=== PATIENT | male | born 1985 | race Caucasian/White ===

== ENCOUNTER 2016-09-20 16:30 | Emergency (ER) | payer OTHER ==
[2016-09-20 16:34] VITALS: BP 114/58
[2016-09-20] MEDS ORDERED: oxyCODONE/Acetamin 5/325 MG* TAB PO ONE (17:51)
--- NOTE | 2016-09-20 18:06 | ED ---
Lower Extremity - HPI Summary HPI Summary: 31M presents with right knee and back today. He was moving furniture when he tripped and feel down 3 stairs and landed on his back and then the dresser when on his knee. He landed on the right side of his back and denies any midline tenderness. He has not ambulate afterwards. He took some ibuprofen prior to arrival. He denies any saddle anaesthesia or loss of bowel or bladder. - History of Current Complaint Chief Complaint: EDTraumaMultiple Stated Complaint: RT LEG /BACK INJURY Time Seen by Provider: 09/20/16 17:39 Pain Intensity: 8 - Allergies/Home Medications Allergies/Adverse Reactions: Allergies Allergy/AdvReac Type Severity Reaction Status Date / Time Bee Venom Allergy Airway Verified 09/20/16 16:31 Obstruction PMH/Surg Hx/FS Hx/Imm Hx Cardiovascular History: Denies: Hx Hypertension Respiratory History: Denies: Hx Asthma Infectious Disease History: No Infectious Disease History: Denies: Traveled Outside the [place] in Last 30 Days - Family History Known Family History: Positive: Hypertension - Social History Alcohol Use: None Substance Use Type: Reports: None Smoking Status (MU): Heavy Every Day Tobacco Smoker Review of Systems Negative: Fever Negative: Chest Pain Negative: Shortness Of Breath Positive: Myalgia - back, ankle All Other Systems Reviewed And Are Negative: Yes Physical Exam Triage Information Reviewed: Yes Vital Signs On Initial Exam: Initial Vitals Temp Pulse Resp BP Pulse Ox 98.5 F 95 16 114/58 99 09/20/16 16:33 09/20/16 16:33 09/20/16 16:33 09/20/16 16:33 09/20/16 16:33 Vital Signs Reviewed: Yes Appearance: Positive: Well-Appearing Skin: Positive: Warm, Dry Head/Face: Positive: Normal Head/Face Inspection Eyes: Positive: Normal, Conjunctiva Clear Respiratory/Lung Sounds: Positive: Clear to Auscultation, Breath Sounds Present Cardiovascular: Positive: Normal, RRR Musculoskeletal: Positive: Other - nontender mid back, tender to right side lower back, area of ecchmyosis noted to top of right knee above patella, mild edema with ballotment test, nontender patella - Rocco Coma Scale Coma Scale Total: 15 Diagnostics - Vital Signs Vital Signs Temp Pulse Resp BP Pulse Ox 09/20/16 16:33 98.5 F 95 16 114/58 99 - Laboratory Lab Statement: Any lab studies that have been ordered have been reviewed, and results considered in the medical decision making process. - Radiology knee Xray Interpretation: No Acute Changes Radiology Interpretation Completed By: Radiologist back Xray Interpretation: No Acute Changes Radiology Interpretation Completed By: Radiologist Lower Extremity Course/Dx - Course Course Of Treatment: 31M presents with knee pain and back pain s/p falling down some stairs and dresser landed on him. on exam has bruise located on his knee and mild edema of right knee. tender to right side of back, no midline tenderness. xray knee and back normal. discussed pain medication and patient says can not do ibuprofen due to rash. patient requesting narcoctic which discussed that do not feel comfortable with as no fracture and was able to ambulate out of bed okay. told to place ice on area and take tyenlol. - Diagnoses Differential Diagnosis/HQI/PQRI: Positive: Fracture (Closed), Sprain, Strain Provider Diagnoses: Contusion of right knee, Back pain Discharge - Discharge Plan Condition: Good Disposition: HOME Patient Education Materials: Knee Pain (ED) Referrals: [facility] [place] [facility]IAN REFERRAL [Outside] No Primary Care Phys,NOPCP [Primary Care Provider] - Additional Instructions: Take Tylenol every 6 hours as needed for pain Apply ice, rest, elevate Establish care with primary care physician to follow up with Return to ED if develop any new or worsening symptoms
--- NOTE | 2016-09-20 18:37 | RAD ---
HISTORY: Right knee trauma COMPARISONS: None VIEWS: 4, Frontal, lateral, axial, and oblique views of the right knee FINDINGS: BONE DENSITY: Normal. BONES: There is no displaced fracture. JOINTS: There is no arthropathy. There is no suprapatellar joint effusion or lipohemarthrosis. ALIGNMENT: There is no dislocation. SOFT TISSUES: Unremarkable. OTHER FINDINGS: None. IMPRESSION: NO ACUTE OSSEOUS INJURY. IF SYMPTOMS PERSIST, RECOMMEND REPEAT IMAGING.
--- NOTE | 2016-09-20 18:38 | RAD ---
HISTORY: Trauma, back pain COMPARISONS: None VIEWS: 6 , Frontal, lateral, coned-down lateral sacral, and bilateral oblique views of the lumbar spine. FINDINGS: There is a transitional last lumbar type vertebral body. ALIGNMENT: The alignment is normal. VERTEBRAL BODIES: The vertebral body heights are normal. The interpedicular distances are normal. There is partial position of the S1 vertebral body. JOINTS: The facet joints are normal. INTERVERTEBRAL DISCS: The intervertebral disc heights are normal. SOFT TISSUE: Unremarkable. OTHER: The pelvis is unremarkable. The lung bases are clear. IMPRESSION: UNREMARKABLE RADIOGRAPHS OF THE LUMBAR SPINE
== END 2016-09-20 18:57 | disposition home or self-care (01) ==
LOC: ED 16:30
DX: S80.01XA Contusion of right knee, initial encounter (principal); M54.9 Dorsalgia, unspecified; W10.9XXA Fall (on) (from) unspecified stairs and steps, initial encounter; Y93.9 Activity, unspecified; Y92.9 Unspecified place or not applicable; Y99.9 Unspecified external cause status
CPT/HCPCS: 72110; 99281; A9270-GY

== ENCOUNTER 2016-12-20 19:25 | Emergency (ER) | payer OTHER ==
[2016-12-20 19:30] VITALS: BP 118/61
[2016-12-20] MEDS ORDERED: Clindamycin CAP* 150 MG PO ONE (21:14)
[2016-12-20] MEDS ORDERED: oxyCODONE/Acetamin 5/325 MG* TAB PO ONE ×2 (21:14→21:22)
--- NOTE | 2016-12-20 21:24 | ED ---
Throat Pain/Nasal Congestion - HPI Summary HPI Summary: 31M presents with dental pain for a day. He states he gets frequent dental infections because has gingivitis. He just wants all his teeth removed. looked in mouth today and noticed abscess. in waiting room abscess popped and has been draining. Has been taking Tylenol for pain which is not working. He denies any swelling around his eyes, pain with eye movement, or fever. His abscess is in his upper teeth. He does have a dentist but is switching so he can have all teeth removed. - History of Current Complaint Chief Complaint: EDDentalPain Time Seen by Provider: 12/20/16 20:52 - Allergies/Home Medications Allergies/Adverse Reactions: Allergies Allergy/AdvReac Type Severity Reaction Status Date / Time Bee Venom Allergy Airway Verified 09/20/16 16:31 Obstruction Ibuprofen AdvReac Mild GI Upset Verified 12/20/16 19:31 Ketorolac Tromethamine AdvReac Mild GI Upset Verified 12/20/16 19:31 [From Toradol] PMH/Surg Hx/FS Hx/Imm Hx Endocrine/Hematology History: Denies: Hx Anticoagulant Therapy Cardiovascular History: Denies: Hx Hypertension Respiratory History: Denies: Hx Asthma Infectious Disease History: No Infectious Disease History: Denies: Traveled Outside the [place] in Last 30 Days - Family History Known Family History: Positive: Hypertension - Social History Alcohol Use: None Substance Use Type: Reports: None Smoking Status (MU): Heavy Every Day Tobacco Smoker Review of Systems Negative: Fever Positive: Dental Pain Negative: Chest Pain Negative: Shortness Of Breath All Other Systems Reviewed And Are Negative: Yes Physical Exam Triage Information Reviewed: Yes Vital Signs On Initial Exam: Initial Vitals Temp Pulse Resp BP Pulse Ox 98.2 F 91 16 118/61 97 12/20/16 19:29 12/20/16 19:29 12/20/16 19:29 12/20/16 19:29 12/20/16 19:29 Vital Signs Reviewed: Yes Appearance: Positive: Pain Distress Skin: Positive: Warm, Dry Head/Face: Positive: Normal Head/Face Inspection Eyes: Positive: Normal, EOMI, MARILYN, Conjunctiva Clear ENT: Positive: Normal ENT inspection, Pharynx normal, TMs normal Dental: Positive: Gross Decay/Caries @ - throughout, Abscess @ - draining at 10 , Other - extensive edema of gingivia consitent with gingivitis Respiratory/Lung Sounds: Positive: Clear to Auscultation, Breath Sounds Present Cardiovascular: Positive: Normal, RRR Diagnostics - Vital Signs Vital Signs Temp Pulse Resp BP Pulse Ox 12/20/16 19:29 98.2 F 91 16 118/61 97 - Laboratory Lab Statement: Any lab studies that have been ordered have been reviewed, and results considered in the medical decision making process. EENT Course/Dx - Course Course Of Treatment: 31M presents with dental pain for a day. He states he gets frequent dental infections because has gingivitis. He just wants all his teeth removed. looked in mouth today and noticed abscess. in waiting room abscess popped and has been draining. Has been taking Tylenol for pain which is not working. He denies any swelling around his eyes, pain with eye movement , or fever. on exam has extensive gingivitis present. draining abscess present on tooth 10. afebrile. will place on clindamycin. do to already draining did not I&D. told needs dental follow up. patient understands and agrees with plan. - Differential Diagnoses Differential Diagnoses: Dental Abscess, Dental Caries, Fracture, Gingivitis - Diagnoses Provider Diagnoses: Dental abscess, Gingivitis Discharge - Discharge Plan Condition: Good Disposition: HOME Prescriptions: Clindamycin CAP* [Cleocin 150 MG CAP*] 450 mg PO TID #87 cap oxyCODONE/Acetamin 5/325 MG* [Percocet 5/325 TAB*] 1 tab PO Q6H PRN #12 tab MDD 4 PRN Reason: Pain Patient Education Materials: Gingivitis (ED) Referrals: [facility] [place] PH[facility]IAN REFERRAL [Outside] Additional Instructions: Take antibiotics: 3 tablets three times a day for 10 days Take ibuprofen every 6 hours, use narcotic for break through pain every 6 hours Avoid hard, crunchy food until seen by dentist Return to ED if develop fever, shortness of breath, pain with eye movement or swelling around eye Establish care with primary care physician Images - Images Dental: 1 - abscess
== END 2016-12-20 21:43 | disposition home or self-care (01) ==
LOC: ED 19:25
DX: K04.7 Periapical abscess without sinus (principal); K05.10 Chronic gingivitis, plaque induced; F17.200 Nicotine dependence, unspecified, uncomplicated
CPT/HCPCS: 99282; A9270-GY

== ENCOUNTER 2017-02-19 15:05 | Emergency (ER) | payer OTHER ==
[2017-02-19 15:17] VITALS: BP 112/63
--- NOTE | 2017-02-19 16:02 | ED ---
Throat Pain/Nasal Congestion - HPI Summary HPI Summary: 32M presents with dental pain since last night. He is going to have dental surgery on Tuesday. He is going to have all his teeth removed. He denies any fever. He denies any difficulty swallowing, chest pain, or SOB. He is not on antibiotic currently. He has been taking tyenlol without relief. He has history of dental pain. - History of Current Complaint Chief Complaint: EDDentalPain Time Seen by Provider: 02/19/17 15:28 - Allergies/Home Medications Allergies/Adverse Reactions: Allergies Allergy/AdvReac Type Severity Reaction Status Date / Time Bee Venom Allergy Airway Verified 09/20/16 16:31 Obstruction Tramadol Allergy Hives Verified 02/19/17 15:17 Ibuprofen AdvReac Mild GI Upset Verified 12/20/16 19:31 Ketorolac Tromethamine AdvReac Mild GI Upset Verified 12/20/16 19:31 [From Toradol] PMH/Surg Hx/FS Hx/Imm Hx Endocrine/Hematology History: Denies: Hx Anticoagulant Therapy Cardiovascular History: Denies: Hx Hypertension Respiratory History: Denies: Hx Asthma Infectious Disease History: No Infectious Disease History: Denies: Traveled Outside the [place] in Last 30 Days - Family History Known Family History: Positive: Hypertension - Social History Alcohol Use: None Substance Use Type: Reports: None Smoking Status (MU): Heavy Every Day Tobacco Smoker Review of Systems Negative: Fever Positive: Dental Pain Negative: Chest Pain Negative: Shortness Of Breath All Other Systems Reviewed And Are Negative: Yes Physical Exam Triage Information Reviewed: Yes Vital Signs On Initial Exam: Initial Vitals Temp Pulse Resp BP Pulse Ox 99.7 F 107 16 112/63 99 02/19/17 15:14 02/19/17 15:14 02/19/17 15:14 02/19/17 15:14 02/19/17 15:14 Vital Signs Reviewed: Yes Appearance: Positive: Pain Distress Skin: Positive: Warm, Dry Head/Face: Positive: Normal Head/Face Inspection Eyes: Positive: Normal, EOMI, MARILYN, Conjunctiva Clear ENT: Positive: Normal ENT inspection, Pharynx normal, TMs normal Dental: Positive: Percussion Tenderness @ - 19, Gross Decay/Caries @ - throughout, Dental Fracture @ - throughout, Other - no submandibular tenderness. Negative: Abscess @, Bleeding Neck: Positive: Supple, Nontender, No Lymphadenopathy Respiratory/Lung Sounds: Positive: Clear to Auscultation, Breath Sounds Present Cardiovascular: Positive: Normal, RRR - Rocco Coma Scale Coma Scale Total: 15 Diagnostics - Vital Signs Vital Signs Temp Pulse Resp BP Pulse Ox 02/19/17 15:14 99.7 F 107 16 112/63 99 - Laboratory Lab Statement: Any lab studies that have been ordered have been reviewed, and results considered in the medical decision making process. EENT Course/Dx - Course Course Of Treatment: 32M presents with dental pain since last night. He is going to have dental surgery on Tuesday. He is going to have all his teeth removed. He denies any fever. He denies any difficulty swallowing, chest pain , or SOB. He is not on antibiotic currently. He has been taking tyenlol without relief. He has history of dental pain. on exam has poor dentition. tender 17. no abscess. will start script PCN. istop checked no pain medication since last time I saw patient. will write for short script. patient understands and agrees with plan. - Differential Diagnoses Differential Diagnoses: Dental Abscess, Dental Caries, Fractured Tooth - Diagnoses Provider Diagnoses: Pain, dental Discharge - Discharge Plan Condition: Good Disposition: HOME Patient Education Materials: Toothache (ED) Referrals: [facility] [place] [facility]IAN REFERRAL [Outside] Additional Instructions: Take antibiotics: 4 times a day for 7 days, first dose given in ED Use tyenlol every 6 hours and narcotic for break through pain at night Avoid hard, crunchy food until seen by dentist Return to ED if develop fever, shortness of breath, pain with eye movement or swelling around eye Establish care with primary care physician Images - Images Dental: 1 - pain
[2017-02-19] MEDS ORDERED: oxyCODONE/Acetamin 5/325 MG* TAB PO ONE (16:04)
[2017-02-19] MEDS ORDERED: Penicillin VK TAB* 250 MG PO ONE (16:04)
== END 2017-02-19 16:25 | disposition home or self-care (01) ==
LOC: ED 15:05
DX: K08.89 Other specified disorders of teeth and supporting structures (principal); F17.210 Nicotine dependence, cigarettes, uncomplicated
CPT/HCPCS: 99282; A9270-GY

== ENCOUNTER 2017-04-06 12:15 | Emergency (ER) | payer OTHER ==
[2017-04-06 12:38] VITALS: BP 100/71
--- NOTE | 2017-04-06 13:20 | UC ---
Lower Extremity/Ankle HPI - HPI Summary HPI Summary: Pt presents with . He complains of lower back pain located mainly on the right side with radiating numbness and pain down his right leg. He tells me that about 1.5 weeks ago he fell down a set of stairs and landed multiple times on his lower back. He had immediate pain and proceeded to the ED where a workup was completed and deemed negative for acute processes. He was prescribed pain medication and told to f/u with his PCP. 5 days later he returned to the ED do to continued right sided lower back pain and out of pain medication. He did not f/u with his PCP, apparently because they had no appointments in that time frame. This visit he was prescribed 2 more days of pain medication. Today, he tells me that the numbness, tingling, and pain down his right leg is more constant and more intense than previously. He is out of pain medication, but states that when he took it that it at least "allowed him to function and cope with the pain". He has an appointment for Wednesday 04/11 with his PCP. He denies bowel or bladder dysfunction, N/V/D/C, or other pain. - History of Current Complaint Chief Complaint: UCBackPain Stated Complaint: LEG PAIN Time Seen by Provider: 04/06/17 13:20 Hx Obtained From: Patient Onset/Duration: Gradual Onset Severity Initially: Severe Severity Currently: Severe Pain Intensity: 10 Pain Scale Used: 0-10 Numeric Aggravating Factor(s): Standing, Ambulation Alleviating Factor(s): Rest, Ice Able to Bear Weight: Yes - Allergies/Home Medications Allergies/Adverse Reactions: Allergies Allergy/AdvReac Type Severity Reaction Status Date / Time Bee Venom Allergy Airway Verified 04/02/17 10:07 Obstruction Tramadol Allergy Hives Verified 04/02/17 10:07 Ibuprofen AdvReac Mild GI Upset Verified 04/02/17 10:07 Ketorolac Tromethamine AdvReac Mild GI Upset Verified 04/02/17 10:07 [From Toradol] PMH/Surg Hx/FS Hx/Imm Hx Previously Healthy: Yes Other History Of: Negative For: Anticoagulant Therapy - Surgical History Surgical History: None - Family History Known Family History: Positive: Hypertension - Social History Alcohol Use: None Substance Use Type: Prescribed Smoking Status (MU): Heavy Every Day Tobacco Smoker Type: Cigarettes Household Exposure Type: Cigarettes Cessation Counseling: Counseled 3+Min - 10 Min Review of Systems Constitutional: Negative Skin: Negative Respiratory: Negative Cardiovascular: Negative Gastrointestinal: Negative Genitourinary: Negative Neurovascular: Decreased Sensation - Right leg Musculoskeletal: Decreased ROM - Right leg, Other: - Pain lower back Neurological: Weakness - Right leg, Numbness - Right leg Psychological: Negative All Other Systems Reviewed And Are Negative: Yes Physical Exam Triage Information Reviewed: Yes Completion Of Physical Exam Limited Due To: Other - Pain and pt inability or refusal due to pain Appearance: Well-Nourished, Pain Distress Vital Signs: Initial Vital Signs Temp 98.2 F 04/06/17 12:33 Pulse 100 04/06/17 12:33 Resp 19 04/06/17 12:33 BP 100/71 04/06/17 12:33 Pulse Ox 100 04/06/17 12:33 Vital Signs Reviewed: Yes Neck: Positive: Supple, Nontender, Other: - NTTP Respiratory: Positive: Chest non-tender, Lungs clear, Normal breath sounds, No respiratory distress, No accessory muscle use Cardiovascular: Positive: RRR, No Murmur, Pulses Normal, Brisk Capillary Refill Abdomen Description: Positive: Nontender, Soft. Negative: CVA Tenderness (R), CVA Tenderness (L), Distended, Guarding Bowel Sounds: Positive: Present Musculoskeletal: Positive: No Edema, Strength Limited @ - Right Leg 3/5 due to pain., ROM Limited @ - Right leg extension/flexion due to pain, Other: - 3/5 Dorsiflexion and plantar flexion on right side due to pain Neurological: Positive: Alert, Muscle Tone Normal, Other: - CN II XII grossly intact. Sensory: sharp and dull touch intact L2-S1. Reflexes: knee and ankle +2. Psychological: Positive: Age Appropriate Behavior Lower Extremity Course/Dx - Course Course Of Treatment: Pt has follow up with PCP 04/11. I provided him with the number for neurosurgery to schedule an appt early april - pending what his PCP says. [place] until 04/11. - Differential Dx/Diagnosis Differential Diagnosis/HQI/PQRI: Sprain, Strain Provider Diagnoses: Low back pain with radiculopathy Discharge - Discharge Plan Condition: Stable Disposition: HOME Prescriptions: Hydrocodone-Acetaminophen [[place] 5-325 mg] 1 tab PO Q6HR #16 tab MDD 4 Patient Education Materials: Low Back Strain (ED) Referrals: No Primary Care Phys,NOPCP [Primary Care Provider] - Veronique Meza MD [Medical Doctor] - Additional Instructions: 1) Keep follow up with PCP on Wednesday 04/11 2) Call neurosurgery to schedule an appointment for sometime early april pending an MRI 3) Rest and alternate ice/heat to your back If you develop a fever, SOB, chest pain, loss of bowel or bladder function, new or worsening symptoms - please call your PCP or go to the ED.
== END 2017-04-06 13:40 | disposition home or self-care (01) ==
LOC: UCEAST 12:15
DX: M54.5 Low back pain (principal); M54.10 Radiculopathy, site unspecified; Z72.0 Tobacco use
CPT/HCPCS: 99212; G0463

== ENCOUNTER 2017-04-18 20:02 | Emergency (ER) | payer OTHER ==
[2017-04-18 22:28] VITALS: BP 99/63
[2017-04-18] MEDS ORDERED: Dexamethasone TAB* 4 MG PO ONE (23:13)
[2017-04-18] MEDS ORDERED: Gabapentin CAP(*) 300 MG PO ONE (23:13)
[2017-04-18] MEDS ORDERED: Methocarbamol TAB* 500 MG PO ONE (23:14)
--- NOTE | 2017-04-18 23:17 | ED ---
Back Pain - HPI Summary HPI Summary: 32M presents with back pain for two weeks. He states had injury two week ago. He had a negative CT at that time. He is having sciatica like pain for past two weeks. it radiates down his right leg. He denies any loss of bowel or bladder. He denies any saddle anaesthesia. He did not have a primary and was working on getting one but they had to reschedule to the 1st. He has been using tyenlol without relief. He denies any new injury. He states the narcotic that was prescribed a few weeks ago helped. He denies any fever. - History of Current Complaint Chief Complaint: EDPrescriptionNeeded Stated Complaint: LOWER BACK PAIN Time Seen by Provider: 04/18/17 22:56 Pain Intensity: 9 - Allergies/Home Medications Allergies/Adverse Reactions: Allergies Allergy/AdvReac Type Severity Reaction Status Date / Time Bee Venom Allergy Airway Verified 04/02/17 10:07 Obstruction Tramadol Allergy Hives Verified 04/02/17 10:07 Ibuprofen AdvReac Mild GI Upset Verified 04/02/17 10:07 Ketorolac Tromethamine AdvReac Mild GI Upset Verified 04/02/17 10:07 [From Toradol] PMH/Surg Hx/FS Hx/Imm Hx Endocrine/Hematology History: Denies: Hx Anticoagulant Therapy Cardiovascular History: Denies: Hx Hypertension Respiratory History: Reports: Hx Asthma Infectious Disease History: No Infectious Disease History: Denies: History Other Infectious Disease, Traveled Outside the [place] in Last 30 Days - Family History Known Family History: Positive: Hypertension - Social History Alcohol Use: None Hx Substance Use: No Substance Use Type: Reports: Prescribed Hx Tobacco Use: Yes Smoking Status (MU): Heavy Every Day Tobacco Smoker Type: Cigarettes Review of Systems Negative: Fever Negative: Chest Pain Negative: Shortness Of Breath Positive: Myalgia - back pain down right leg All Other Systems Reviewed And Are Negative: Yes Physical Exam Triage Information Reviewed: Yes Vital Signs On Initial Exam: Initial Vitals Temp Pulse Resp BP Pulse Ox 99.0 F 96 16 122/66 100 04/18/17 20:11 04/18/17 20:11 04/18/17 20:11 04/18/17 20:11 04/18/17 20:11 Vital Signs Reviewed: Yes Appearance: Positive: Well-Appearing Skin: Positive: Warm, Cold Head/Face: Positive: Normal Head/Face Inspection Eyes: Positive: Normal Respiratory/Lung Sounds: Positive: Clear to Auscultation, Breath Sounds Present Cardiovascular: Positive: Normal, RRR Musculoskeletal: Positive: Strength/ROM Intact - back, Other - tenderness over right SI joint, pos SLR right, good pulses Neurological: Positive: Reflexes Intact - patella Diagnostics - Vital Signs Vital Signs Temp Pulse Resp BP Pulse Ox 04/18/17 22:27 98.7 F 75 16 99/63 99 04/18/17 20:11 99.0 F 96 16 122/66 100 - Laboratory Lab Statement: Any lab studies that have been ordered have been reviewed, and results considered in the medical decision making process. Back Pain Course/Dx - Course Course Of Treatment: 32M presents with back pain for two weeks. He states had injury two week ago. He had a negative CT at that time. He is having sciatica like pain for past two weeks. it radiates down his right leg. He denies any loss of bowel or bladder. He denies any saddle anaesthesia. He did not have a primary and was working on getting one but they had to reschedule to the 1st. He has been using tyenlol without relief. He denies any new injury. He states the narcotic that was prescribed a few weeks ago helped. He denies any fever. on exam pos SLR right, patella intact, no midline tenderness, tenderness over SI joint. istop [id number]. explained that can not write scripts for narcotic for this recurrent pain as needs to follow up with primary. offered to go gabapentin , robaxin and medrol for pain. patient said "the only thing that works for me is narcotic" patient refused medication at discharge. - Diagnoses Differential Diagnosis/HQI/PQRI: Positive: Herniated Disc, Strain, Sprain Provider Diagnoses: Sciatica of right side Discharge - Discharge Plan Condition: Good Disposition: HOME Prescriptions: Gabapentin CAP(*) [Neurontin 300 CAP(*)] 300 mg PO TID #15 cap Methocarbamol [Robaxin-750 MG TAB] 750 mg PO TID #15 tab Methylprednisolone [Medrol Dosepak 4 MG*] 4 mg PO .SEE PINEDA INSTRUCTION #1 packet Patient Education Materials: Back Pain (ED) Referrals: [facility] [place],PT [Medical Doctor] - [facility] [place] [facility] REFERRAL [Outside] Additional Instructions: Follow up with primary A referral was given for PT which will be off some benefit to you Follow directions on package for Medrol pack Take muscle relaxers three times a day Use Tylenol for pain every 6 hours ice/heat area, move as much as possible Return to ED if develop any new or worsening symptoms
== END 2017-04-18 23:37 | disposition home or self-care (01) ==
LOC: ED 20:02
DX: M54.31 Sciatica, right side (principal); F17.210 Nicotine dependence, cigarettes, uncomplicated
CPT/HCPCS: 99281

== ENCOUNTER 2017-04-19 12:39 | Emergency (ER) | payer OTHER ==
[2017-04-19 12:45] VITALS: BP 144/71
--- NOTE | 2017-04-19 13:58 | UC ---
Bobo Gould Benjamin, scribed for Loco Mcclain MD on 04/19/17 at 1344 . Back Pain HPI - HPI Summary HPI Summary: 32yo male c/o lower back pain that radiates down the anterior aspect of his right leg. Pt started having back pain since 2-3 weeks ago, after a mechanical fall. Pt also reports numbness, tingling, and weakness on his right leg that started around 4 days after his fall. Pt denies any bowel or urinary incontinence. Anal area is not numb. Pt was seen at ED for his fall, and CT r/o any fx. FHx of DDD, DM, breast CA, and COPD. Pt's PCP appointment is on the , and pt requests pain meds until then. - History of Current Complaint Chief Complaint: UCBackPain Stated Complaint: LOWER BACK AND RIGHT LEG PAIN Time Seen by Provider: 04/19/17 13:30 Hx Obtained From: Patient, Family/[employer]pler - partner Onset/Duration: Sudden Onset, Lasting Weeks - 2-3 weeks, Still Present, Worse Since - progressively worsensing Timing: Constant Severity Initially: Mild Severity Currently: Moderate Pain Scale Used: 0-10 Numeric Back Pain: Is Discrete @ - lower back, Radiates To - RLE Aggravating Factor(s): Movement Alleviating Factor(s): Rest Associated Signs And Symptoms: Positive: Weakness - RLE, Numbness - RLE, Tingling - RLE. Negative: Bladder Incontinence, Bowel Incontinence - Allergies/Home Medications Allergies/Adverse Reactions: Allergies Allergy/AdvReac Type Severity Reaction Status Date / Time Bee Venom Allergy Airway Verified 04/19/17 12:41 Obstruction Tramadol Allergy Hives Verified 04/19/17 12:41 Ibuprofen AdvReac Mild GI Upset Verified 04/19/17 12:41 Ketorolac Tromethamine AdvReac Mild GI Upset Verified 04/19/17 12:41 [From Toradol] Home Medications: Home Medications NK [No Home Medications Reported] 04/19/17 [History Confirmed 04/19/17] PMH/Surg Hx/FS Hx/Imm Hx Previously Healthy: Yes Other History Of: Negative For: Anticoagulant Therapy - Surgical History Surgical History: None - Family History Known Family History: Positive: Diabetes, Respiratory Disease - COPD, Other - Breast CA - Social History Occupation: Employed Full-time Lives: With Family Alcohol Use: None Substance Use Type: Prescribed Smoking Status (MU): Heavy Every Day Tobacco Smoker Type: Cigarettes Household Exposure Type: Cigarettes Review of Systems Constitutional: Negative Skin: Negative Eyes: Negative ENT: Negative Respiratory: Negative Cardiovascular: Negative Gastrointestinal: Negative Genitourinary: Negative Motor: Decreased ROM - RLE, Weakness - RLE Neurovascular: Decreased Sensation - RLE Musculoskeletal: Negative Neurological: Weakness - RLE, Numbness - RLE Psychological: Negative All Other Systems Reviewed And Are Negative: Yes Physical Exam Triage Information Reviewed: Yes Appearance: Well-Appearing, No Pain Distress Vital Signs: Initial Vital Signs Temp 98 F 04/19/17 12:42 Pulse 105 04/19/17 12:42 Resp 22 04/19/17 12:42 BP 144/71 04/19/17 12:42 Pulse Ox 100 04/19/17 12:42 ENT: Positive: Normal ENT inspection Neck: Positive: Supple, Nontender Respiratory: Positive: Chest non-tender, Lungs clear, Normal breath sounds Cardiovascular: Positive: RRR, No Murmur Abdomen Description: Positive: Nontender Musculoskeletal: Positive: ROM Intact, Other: - tender L spine on right about L 2/3 Neurological: Positive: Alert, Other: - CN 2-12 grossly intact. He has diminished 4/5 strength right quadraceps, and decreased sensation right quadracep. reflex slight diminished right patellar reflex. Others motor sensory intact. He is able to ambulate, but limited due to pain. Psychological: Positive: Normal Response To Family Skin Exam: Normal Back Pain Course/Dx - Course Course Of Treatment: Reviewed pts medication and allergy lists. High Blood pressure noted. The patient refuses transport to the ER by ambulance for right thigh weakness/numbness and pain. He wanted pain medication/narcotics until his appointment on the . He signed out AMA for refusal of transport with risk of paralysis, injury to spine, disability understood. He would require an MRI given his neurological symptoms now. - Differential Dx/Diagnosis Provider Diagnoses: right quadracep weakness and numbness. low back pain. Hypertension Discharge - Discharge Plan Condition: Stable Disposition: AGAINST MEDICAL ADVICE Referrals: No Primary Care Phys,NOPCP [Primary Care Provider] - The documentation as recorded by the Bobo valle Benjamin accurately reflects the service I personally performed and the decisions made by me, Loco Mcclain MD.
== END 2017-04-19 13:46 | disposition left against medical advice (07) ==
LOC: UCEAST 12:39
DX: M62.81 Muscle weakness (generalized) (principal); R20.0 Anesthesia of skin; M54.5 Low back pain; Z72.0 Tobacco use
CPT/HCPCS: 99212; G0463

== ENCOUNTER 2017-04-19 14:05 | Emergency (ER) | payer OTHER ==
[2017-04-19] MEDS ORDERED: Morphine INJ* 4 MG/ML 1 ML CARPUJECT IM ONE (17:48)
[2017-04-19] MEDS ORDERED: LORazepam TAB(*) 1 MG PO ONE (17:49)
[2017-04-19 18:05] VITALS: BP 118/74
--- NOTE | 2017-04-20 10:32 | ED ---
Back Pain - HPI Summary HPI Summary: Patient presents with diffuse mid and low back pain. This is the 6th visit in a 3 week period with request for opioids. He states no other medication is helping his pain and refuses to take anything else. He was seen 3 weeks ago s/ p fall on steps. CT at that time was negative, but was given hydrocodone and muscle relaxers. He returned 5 more times requesting same. He has been given pain medication 3 of those times. He was also seen last night and given steroids, muscle relaxers and gabapentin. Today, he arrives stating he is sent here from to get an MRI. He was told by coming here he would get an MRI as well as pain medications. Denies B/B dysfunction. Endorses numbness/tingling into the right leg. Denies any neck pain or pain in the bilateral arms. Denies hitting his head or LOC. Relieved with nothing, worse with movement and standing. Ambulating but with pain. Unable to flex and extend at the hips d/t pain per patient, but will not attempt for provider. Pain is 10/10, spasmotic and non-radiating. - History of Current Complaint Chief Complaint: EDBackInjuryPain Stated Complaint: LOWER BACK PAIN SENT FROM Time Seen by Provider: 04/19/17 17:29 Hx Obtained From: Patient Onset/Duration: Sudden Onset Onset/Duration: Started Weeks Ago Timing: Constant Back Pain Location: Is Discrete @ - right low back with radiation to the right leg Severity Initially: Severe Severity Currently: Severe Pain Intensity: 7 Pain Scale Used: 0-10 Numeric Character: Aching Aggravating Symptom(s): Bending, Walking Alleviating Symptom(s): Rest, Position Associated Signs And Symptoms: Positive: Weakness, Numbness, Tingling, Pain with Weight Bearing. Negative: Abdominal Pain, Flank Pain, Bladder Incontinence , Bowel Incontinence, Weight Loss - Risk Factors AAA Risk Factors: Negative TAD Risk Factors: Negative Cauda Equina Risk Factors: Negative Epidural Abscess Risk Factors: Negative - Allergies/Home Medications Allergies/Adverse Reactions: Allergies Allergy/AdvReac Type Severity Reaction Status Date / Time Bee Venom Allergy Airway Verified 04/19/17 12:41 Obstruction Tramadol Allergy Hives Verified 04/19/17 12:41 Ibuprofen AdvReac Mild GI Upset Verified 04/19/17 12:41 Ketorolac Tromethamine AdvReac Mild GI Upset Verified 04/19/17 12:41 [From Toradol] PMH/Surg Hx/FS Hx/Imm Hx Previously Healthy: Yes Endocrine/Hematology History: Denies: Hx Anticoagulant Therapy Cardiovascular History: Denies: Hx Hypertension Respiratory History: Reports: Hx Asthma - Immunization History Date of Influenza Vaccine: 01/2017 Immunizations Up to Date: Yes Infectious Disease History: No Infectious Disease History: Denies: Hx Clostridium Difficile, Hx Hepatitis, Hx Human Immunodeficiency Virus (HIV), Hx of Known/Suspected MRSA, Hx Shingles, Hx Tuberculosis, Hx Known/ Suspected VRE, Hx Known/Suspected VRSA, History Other Infectious Disease, Traveled Outside the [place] in Last 30 Days - Family History Known Family History: Positive: Hypertension, Diabetes, Respiratory Disease - COPD, Other - Breast CA - Social History Occupation: Unemployed Lives: With Family Alcohol Use: None Hx Substance Use: No Substance Use Type: Reports: Prescribed Hx Tobacco Use: Yes Smoking Status (MU): Heavy Every Day Tobacco Smoker Type: Cigarettes Review of Systems Constitutional: Negative Negative: Fever, Chills, Fatigue Eyes: Negative Cardiovascular: Negative Genitourinary: Negative Positive: no symptoms reported, see HPI Positive: Arthralgia - low back pain Positive: Weakness, Paresthesia, Numbness Psychological: Normal All Other Systems Reviewed And Are Negative: Yes Physical Exam Triage Information Reviewed: Yes Vital Signs On Initial Exam: Initial Vitals Temp Pulse Resp BP Pulse Ox 98.5 F 96 16 127/66 99 04/19/17 14:09 04/19/17 14:09 04/19/17 14:09 04/19/17 14:09 04/19/17 14:09 Vital Signs Reviewed: Yes Appearance: Positive: Well-Appearing, Well-Nourished Skin: Positive: Skin Color Reflects Adequate Perfusion Head/Face: Positive: Normal Head/Face Inspection Eyes: Positive: EOMI, MARILYN, Conjunctiva Clear Neck: Positive: Supple, No Lymphadenopathy Respiratory/Lung Sounds: Positive: Clear to Auscultation, Breath Sounds Present Cardiovascular: Positive: RRR, Pulses are Symmetrical in both Upper and Lower Extremities Musculoskeletal: Positive: Pain @ - low back Neurological: Positive: Speech Normal Psychiatric: Positive: Normal - [place] Coma Scale Coma Scale Total: 15 Diagnostics - Vital Signs Vital Signs Temp Pulse Resp BP Pulse Ox 04/19/17 18:05 17 04/19/17 18:02 98 F 99 17 118/74 98 04/19/17 14:09 98.5 F 96 16 127/66 99 - Laboratory Lab Statement: Any lab studies that have been ordered have been reviewed, and results considered in the medical decision making process. Back Pain Course/Dx - Course Course Of Treatment: Patient evaluated for continuing back pain. He was also seen last night and given steroids, muscle relaxers and gabapentin. Today, he arrives stating he is sent here from to get an MRI. He was told by coming here he would get an MRI as well as pain medications. Denies B/B dysfunction. Patient states he was NOT seen here last night and not given medications, however provider was able to see him in the ED last night and complete note as well as medications were given at that time. He also states he has not been given pain medications at all since he was originally seen here on 03/29/17. ISTOP reveals he has been given opiods 3 x between ED and . He denies this and gets angry when confronted and given print out. Provider states he does not meet criteria for an MRI with no B/B dysfunction. I have agreed he may need an MRI at some point, but it is not emergent. He states he just wants his pain medications. Provider has offered muscle relaxer, steroids and gabapentin - all to which he refuses. I have asked if he would like to see another provider, but d/t not following with neurosurgery or primary as recommeneded and 6 separate requests for opiod medications- he is unlikely to get them. He declines. He requests to be sent home with opioids and not given in ED. To this degree, provider has stated adamantly he will not be getting opioids and he agrees to leave. - Diagnoses Differential Diagnosis/HQI/PQRI: Positive: Herniated Disc, Strain, Sprain Provider Diagnoses: Back pain Discharge - Discharge Plan Condition: Stable Disposition: HOME Prescriptions: LORazepam TAB(*) [Ativan 1 MG TAB (*)] 1 mg PO Q8H PRN #10 tab MDD 3 PRN Reason: Pain predniSONE TAB* [Deltasone TAB*] 40 mg PO DAILY #5 tab Referrals: Levon Benavides MD [Medical Doctor] - No Primary Care Phys,NOPCP [Primary Care Provider] - Additional Instructions: Call for appt tomorrow for Dr. Benavides
== END 2017-04-19 18:08 | disposition home or self-care (01) ==
LOC: ED 14:05
DX: M54.5 Low back pain (principal); J45.909 Unspecified asthma, uncomplicated; Z88.5 Allergy status to narcotic agent; Z88.6 Allergy status to analgesic agent; Z91.030 Bee allergy status; F17.210 Nicotine dependence, cigarettes, uncomplicated
CPT/HCPCS: 96372; 99281; J2270